=== PATIENT | female | born 1945 | race Caucasian/White ===

== ENCOUNTER 2022-09-18 09:32 | Day surgery (SDC) | payer MEDICARE, OTHER ==
[~2022-09-18] VITALS: Ht 157.5 cm; Wt 50.9 kg
[2022-09-18] MEDS ORDERED: OMEP40CA21 PO (09:54)
[2022-09-18] MEDS ORDERED: CHOL100046 PO (09:54)
[2022-09-18] MEDS ORDERED: MEMA10TA56 PO (09:54)
[2022-09-18] MEDS ORDERED: PRAV20TA4 PO (09:54)
[2022-09-18] MEDS ORDERED: DILT30TA3 PO (09:54)
[2022-09-18] MEDS ORDERED: MULT-1085 PO (09:54)
[2022-09-18] MEDS ORDERED: MIDAZolam 1 MG/ML 5ML VIAL ONE (11:05)
[2022-09-18] MEDS ORDERED: fentaNYL/PF 50MCG/1 ML 2ML syringe ONE (11:05)
[2022-09-18 12:35] VITALS: BP 108/68
[2022-09-18 12:45] VITALS: BP 117/65
[2022-09-18 12:55] VITALS: BP 118/82
[2022-09-18 13:05] VITALS: BP 109/78
[2022-09-18 13:06] VITALS: BP 138/72
== END 2022-09-18 13:10 | disposition home or self-care (01) ==
LOC: GI LAB 09:32
PROVIDERS: ATTEND Internal Medicine Gastroenterology
DX: Z08 Encounter for follow-up examination after completed treatment for malignant neoplasm (principal); K57.30 Diverticulosis of large intestine without perforation or abscess without bleeding; K64.8 Other hemorrhoids; K62.1 Rectal polyp; F03.90 Unspecified dementia, unspecified severity, without behavioral disturbance, psychotic disturbance, mood disturbance, and anxiety; Z98.0 Intestinal bypass and anastomosis status; Z85.038 Personal history of other malignant neoplasm of large intestine; Z87.891 Personal history of nicotine dependence; Z72.89 Other problems related to lifestyle; Z79.899 Other long term (current) drug therapy; Z80.0 Family history of malignant neoplasm of digestive organs
CPT/HCPCS: 45385; C1889; G0500; J2250; J3010; J7030; Z7512; 99152; A4620

== ENCOUNTER 2022-12-04 06:36 | Emergency (ER) | payer MEDICARE, OTHER ==
[~2022-12-04] VITALS: Ht 157.5 cm; Wt 54.5 kg
[~2022-12-04 06:36] MED LIST: APIX5TAB3 PO; CHOL100046 PO; LEVO750T68 PO; LISI5TAB22 PO; LOP25T PO; MEMA10TA56 PO; OMEP40CA21 PO; PRAV20TA4 PO
[2022-12-04 08:03] LABS: BASOPHILS # (AUTO) 0.1 X10'3 (0-0.2); BASOPHILS % (AUTO) 0.6 % (0-1); EOSINOPHILS # (AUTO) 0.2 X10'3 (0-0.9); EOSINOPHILS % (AUTO) 1.8 % (0-6); HEMATOCRIT 36.2 % (35.0-45.0); HEMOGLOBIN 12.1 g/dl (12.0-16.0); LYMPHOCYTES # (AUTO) 1.4 X10'3 (1.1-4.8); LYMPHOCYTES % (AUTO) 13.6 % (21-51); MEAN CORPUSCULAR HEMOGLOBIN 32.7 PG (27.0-31.0); MEAN CORPUSCULAR HGB CONC 33.3 g/dL (33.0-36.5); MEAN CORPUSCULAR VOLUME 98.1 FL (78-98); MONOCYTES # (AUTO) 0.9 X10'3 (0-0.9); MONOCYTES % (AUTO) 8.9 % (2-12); NEUTROPHILS # (AUTO) 7.6 X10'3 (1.8-7.7); NEUTROPHILS % (AUTO) 75.1 % (42-75); PLATELET COUNT 243 X10'3 (140-440); RED BLOOD COUNT 3.69 X10'6 (4.20-5.60); RED CELL DISTRIBUTION WIDTH 14.4 % (11.5-14.5); WHITE BLOOD COUNT 10.1 X10'3 (4.5-11.0)
[2022-12-04 08:12] LABS: ALANINE AMINOTRANSFERASE 25 U/L (12-78); ALBUMIN 3.4 G/DL (3.4-5.0); ALBUMIN/GLOBULIN RATIO 0.9 (1.1-1.5); ALKALINE PHOSPHATASE 99 IU/L (46-116); ANION GAP 12 (8-16); ASPARTATE AMINO TRANSFERASE 27 U/L (10-37); BILIRUBIN,TOTAL 0.8 MG/DL (0.1-1.0); BLOOD UREA NITROGEN 8 MG/DL (7-18); BUN/CREATININE RATIO 8.2 (10.0-20.0); CALCIUM 8.6 MG/DL (8.5-10.1); CHLORIDE 108 MMOL/L (99-107); CREATININE 0.98 MG/DL (0.40-0.90); LIPASE 115 U/L (73-393); POTASSIUM 3.7 MMOL/L (3.5-5.1); SODIUM 144 MMOL/L (135-145); TOTAL CARBON DIOXIDE 24.5 MMOL/L (24-32); eGFR 55 ML/MIN
[2022-12-04 08:23] LABS: GLUCOSE 118 MG/DL (70-104)
[2022-12-04] MEDS ORDERED: metoprolol tartrate 50mg tablet PO ONE (08:25)
[2022-12-04 09:27] VITALS: BP 130/97; PULSE 110; RESP 20; TEMP 97.2; O2SAT 95
[2022-12-04] MEDS ORDERED: dicyclomine 10 MG capsule PO ONE (09:55)
[2022-12-04] MEDS ORDERED: DICY10CA88 PO ×2 (09:58)
[2022-12-06] MEDS ORDERED: LISI5TAB22 PO (16:44)
[2022-12-06] MEDS ORDERED: APIX5TAB3 PO (16:44)
[2022-12-06] MEDS ORDERED: DICY10CA88 PO (16:44)
[2022-12-06] MEDS ORDERED: PRAV20TA4 PO (16:44)
[2022-12-06] MEDS ORDERED: DILT30TA3 PO (16:44)
[2022-12-06] MEDS ORDERED: METO25TA6 PO (16:44)
[2022-12-11] MEDS ORDERED: FOLI1TAB27 PO (10:18)
[2022-12-11] MEDS ORDERED: LEVO250T74 PO (10:18)
[2022-12-11] MEDS ORDERED: MULT-25 PO (10:18)
[2022-12-11] MEDS ORDERED: SACU1TAB PO (10:18)
[2022-12-11] MEDS ORDERED: thiamine tablet PO (10:18)
[2022-12-11] MEDS ORDERED: FURO-149 PO (10:29)
[2022-12-11] MEDS ORDERED: METO-395 PO (10:36)
== END 2022-12-04 10:17 | disposition home or self-care (01) ==
LOC: ER 06:36
DX: R10.9 Unspecified abdominal pain (principal); F03.90 Unspecified dementia, unspecified severity, without behavioral disturbance, psychotic disturbance, mood disturbance, and anxiety; Z88.0 Allergy status to penicillin; Z79.899 Other long term (current) drug therapy
CPT/HCPCS: 36415; 74176; 80053; 83690; 85025; 93005; 99284

== ENCOUNTER 2023-04-05 14:18 | Emergency (ER) | payer MEDICARE, OTHER ==
[~2023-04-05] VITALS: Ht 152.4 cm; Wt 49.0 kg
[~2023-04-05 14:18] MED LIST changes: +ALBU6.7H14 INH; -CHOL100046 PO; -LEVO750T68 PO; +LISI2.5T14 PO; -LISI5TAB22 PO; -LOP25T PO; +METO25TA6 PO; +SPIR25TA PO
--- NOTE | 2023-04-05 15:06 | NUR ---
SPOKE WITH . HE IS WONDERING IF PATIENT HAS A ROOM YET.
[2023-04-05 15:08] LABS: BASOPHILS % (AUTO) 0.7 % (0-1); EOSINOPHILS # (AUTO) 0.1 X10'3 (0-0.9); EOSINOPHILS % (AUTO) 0.8 % (0-6); HEMATOCRIT 30.3 % (35.0-45.0); HEMOGLOBIN 10.1 g/dl (12.0-16.0); LYMPHOCYTES % (AUTO) 26.4 % (21-51); MEAN CORPUSCULAR HEMOGLOBIN 31.5 PG (27.0-31.0); MEAN CORPUSCULAR HGB CONC 33.4 g/dL (33.0-36.5); MEAN CORPUSCULAR VOLUME 94.2 FL (78-98); MONOCYTES # (AUTO) 0.7 X10'3 (0-0.9); MONOCYTES % (AUTO) 9.6 % (2-12); NEUTROPHILS # (AUTO) 4.8 X10'3 (1.8-7.7); NEUTROPHILS % (AUTO) 62.5 % (42-75); PLATELET COUNT 274 X10'3 (140-440); RED BLOOD COUNT 3.22 X10'6 (4.20-5.60); RED CELL DISTRIBUTION WIDTH 15.3 % (11.5-14.5); WHITE BLOOD COUNT 7.7 X10'3 (4.5-11.0)
[2023-04-05 15:22] LABS: ALANINE AMINOTRANSFERASE 14 U/L (12-78); ALBUMIN 3.5 G/DL (3.4-5.0); ALKALINE PHOSPHATASE 72 IU/L (46-116); ANION GAP 7 (8-16); ASPARTATE AMINO TRANSFERASE 16 U/L (10-37); BILIRUBIN,TOTAL 0.6 MG/DL (0.1-1.0); BLOOD UREA NITROGEN 13 MG/DL (7-18); BUN/CREATININE RATIO 16.3 (10.0-20.0); CHLORIDE 104 MMOL/L (99-107); LIPASE 41 U/L (16-77); POTASSIUM 4.3 MMOL/L (3.5-5.1); SODIUM 141 MMOL/L (135-145); TOTAL CARBON DIOXIDE 30.2 MMOL/L (24-32); eCRCL 41 ML/MIN; eGFR 69 ML/MIN
[2023-04-05 15:24] LABS: GLUCOSE 98 MG/DL (70-104)
[2023-04-05 15:26] LABS: BILIRUBIN,URINE NEGATIVE (Neg); CLARITY,URINE SLIGHTLY CLOUDY (Clear); COLOR,URINE YELLOW (Yellow); GLUCOSE, URINE 500 mg/dl (Neg); KETONES,URINE TRACE mg/dl (Neg); LEUKOCYTE ESTERASE ,URINE NEGATIVE (Neg); NITRITES, URINE NEGATIVE (Neg); OCCULT BLOOD,URINE NEGATIVE (Neg); PROTEIN,URINE NEGATIVE (Neg)
[2023-04-05 15:36] LABS: UA COLLECTION TYPE OTHER
[2023-04-05 15:37] LABS: MUCUS STRANDS MODERATE /LPF (Neg); SQUAMOUS EPITHELIAL CELL,UR MANY /LPF (FEW)
[2023-04-05 15:38] LABS: BACTERIA,URINE FEW /HPF (Neg); RBC,URINE 0-2 /HPF (0-2); TRANSITIONAL EPI CELLS,URINE FEW /HPF; WBC,URINE 0-4 /HPF (0-4)
--- NOTE | 2023-04-05 16:25 | NUR ---
DR. VARNER AT BEDSIDE.
[2023-04-05] MEDS ORDERED: bisacodyl 5mg tablet.DR PO ONE (23:35)
[2023-04-05] MEDS ORDERED: BISA-79 PO (23:39)
[2023-04-06 01:48] VITALS: BP 119/82; PULSE 89; RESP 14; TEMP 97.8; O2SAT 98
== END 2023-04-06 01:47 | disposition home or self-care (01) ==
LOC: ER 14:19
DX: K59.00 Constipation, unspecified (principal); R53.1 Weakness
CPT/HCPCS: 36415; 74176; 80053; 81001; 83690; 85025; 99285; A4353

== ENCOUNTER 2023-06-26 15:17 | Emergency (ER) | payer MEDICARE, OTHER ==
[~2023-06-26] VITALS: Ht 167.6 cm; Wt 48.6 kg
[~2023-06-26 15:17] MED LIST changes: +BISA-79 PO
[2023-06-26 18:10] LABS: EOSINOPHILS % (AUTO) 0 % (0-6); MEAN CORPUSCULAR HEMOGLOBIN 25.1 PG (27.0-31.0); MEAN PLATELET VOLUME 8.4 FL (7.4-10.4); MONOCYTES # (AUTO) 0.9 X10'3 (0-0.9); MONOCYTES % (AUTO) 10.7 % (2-12); WHITE BLOOD COUNT 8.9 X10'3 (4.5-11.0)
[2023-06-26 18:13] LABS: BASOPHILS % (AUTO) 0.6 % (0-1); HEMATOCRIT 29.7 % (35.0-45.0); HEMOGLOBIN 9.4 g/dl (12.0-16.0); LYMPHOCYTES # (AUTO) 1.5 X10'3 (1.1-4.8); LYMPHOCYTES % (AUTO) 17.3 % (21-51); MEAN CORPUSCULAR HGB CONC 31.7 g/dL (33.0-36.5); MEAN CORPUSCULAR VOLUME 79.2 FL (78-98); NEUTROPHILS # (AUTO) 6.3 X10'3 (1.8-7.7); NEUTROPHILS % (AUTO) 71.4 % (42-75); PLATELET COUNT 362 X10'3 (140-440); RED BLOOD COUNT 3.75 X10'6 (4.20-5.60); RED CELL DISTRIBUTION WIDTH 18.2 % (11.5-14.5)
[2023-06-26 18:42] LABS: ALANINE AMINOTRANSFERASE 22 U/L (12-78); ALBUMIN 3.2 G/DL (3.4-5.0); ALBUMIN/GLOBULIN RATIO 0.7 (1.1-1.5); ALKALINE PHOSPHATASE 91 IU/L (46-116); ANION GAP 11 (8-16); ASPARTATE AMINO TRANSFERASE 18 U/L (10-37); BILIRUBIN,TOTAL 0.9 MG/DL (0.1-1.0); BLOOD UREA NITROGEN 24 MG/DL (7-18); BUN/CREATININE RATIO 23.3 (10.0-20.0); CHLORIDE 104 MMOL/L (99-107); CREATININE 1.03 MG/DL (0.40-0.90); LIPASE 43 U/L (16-77); POTASSIUM 4.5 MMOL/L (3.5-5.1); SODIUM 138 MMOL/L (135-145); TOTAL CARBON DIOXIDE 22.9 MMOL/L (24-32); TOTAL PROTEIN 7.8 G/DL (6.4-8.2); eCRCL 34 ML/MIN; eGFR 52 ML/MIN
[2023-06-26 18:50] LABS: GLUCOSE 136 MG/DL (70-104)
[2023-06-26 19:42] LABS: CALCIUM 9.1 MG/DL (8.5-10.1)
[2023-06-26 19:54] LABS: ACANTHOCYTES FEW; ANISOCYTOSIS 2+; BURR CELLS FEW; HYPOCHROMASIA 2+; MICROCYTOSIS 1+; PLATELET ESTIMATE NORMAL; SCHISTOCYTES FEW
[2023-06-26 23:53] VITALS: BP 121/84; PULSE 106; RESP 16; TEMP 97.8; O2SAT 95
== END 2023-06-26 23:55 | disposition home or self-care (01) ==
LOC: ER 15:18
DX: K80.20 Calculus of gallbladder without cholecystitis without obstruction (principal); K80.50 Calculus of bile duct without cholangitis or cholecystitis without obstruction; K56.609 Unspecified intestinal obstruction, unspecified as to partial versus complete obstruction; K62.4 Stenosis of anus and rectum
CPT/HCPCS: 36415; 71045; 74176; 76700; 80053; 83690; 84484; 85008; 85025; 93005; 99285

== ENCOUNTER 2023-08-08 11:30 | Emergency (ER) | payer MEDICARE, OTHER ==
[~2023-08-08] VITALS: Ht 149.9 cm; Wt 45.5 kg
[2023-08-08 11:32] VITALS: TEMP 97.2
[2023-08-08 12:15] LABS: BASOPHILS # (AUTO) 0.1 X10'3 (0-0.2); EOSINOPHILS # (AUTO) 0.1 X10'3 (0-0.9); EOSINOPHILS % (AUTO) 0.8 % (0-6); HEMATOCRIT 27.7 % (35.0-45.0); HEMOGLOBIN 8.4 g/dl (12.0-16.0); LYMPHOCYTES # (AUTO) 1.5 X10'3 (1.1-4.8); LYMPHOCYTES % (AUTO) 18.3 % (21-51); MEAN CORPUSCULAR HEMOGLOBIN 23.1 PG (27.0-31.0); MEAN CORPUSCULAR HGB CONC 30.5 g/dL (33.0-36.5); MEAN CORPUSCULAR VOLUME 75.8 FL (78-98); MEAN PLATELET VOLUME 8.4 FL (7.4-10.4); MONOCYTES % (AUTO) 12.7 % (2-12); NEUTROPHILS # (AUTO) 5.4 X10'3 (1.8-7.7); NEUTROPHILS % (AUTO) 67.2 % (42-75); PLATELET COUNT 403 X10'3 (140-440); RED BLOOD COUNT 3.65 X10'6 (4.20-5.60); RED CELL DISTRIBUTION WIDTH 22.1 % (11.5-14.5)
[2023-08-08 12:29] LABS: ALANINE AMINOTRANSFERASE 10 U/L (12-78); ALBUMIN 2.6 G/DL (3.4-5.0); ALBUMIN/GLOBULIN RATIO 0.6 (1.1-1.5); ALKALINE PHOSPHATASE 89 IU/L (46-116); ANION GAP 10 (8-16); ASPARTATE AMINO TRANSFERASE 23 U/L (10-37); BILIRUBIN,TOTAL 0.8 MG/DL (0.1-1.0); BLOOD UREA NITROGEN 17 MG/DL (7-18); BUN/CREATININE RATIO 24.6 (10.0-20.0); CALCIUM 7.9 MG/DL (8.5-10.1); CHLORIDE 104 MMOL/L (99-107); CREATININE 0.69 MG/DL (0.40-0.90); POTASSIUM 3.3 MMOL/L (3.5-5.1); SODIUM 138 MMOL/L (135-145); TOTAL CARBON DIOXIDE 24.3 MMOL/L (24-32); TOTAL PROTEIN 6.7 G/DL (6.4-8.2); eCRCL 45 ML/MIN; eGFR 82 ML/MIN
[2023-08-08 12:31] LABS: ANISOCYTOSIS 3+; MICROCYTOSIS 1+; PLATELET ESTIMATE NORMAL; SCHISTOCYTES FEW
[2023-08-08 12:33] LABS: ELLIPTOCYTES FEW
[2023-08-08 12:42] LABS: GLUCOSE 85 MG/DL (70-104)
[2023-08-08] MEDS: potassium Cl 20 mEq SR tablet PO ONE (14:25)
[2023-08-08] MEDS ORDERED: ONDA4TAB12 PO (15:21)
[2023-08-08 16:10] VITALS: BP 111/76; PULSE 96; RESP 18; O2SAT 100
== END 2023-08-08 16:10 | disposition home or self-care (01) ==
LOC: ER 11:30
DX: D64.9 Anemia, unspecified (principal); E87.6 Hypokalemia; F03.90 Unspecified dementia, unspecified severity, without behavioral disturbance, psychotic disturbance, mood disturbance, and anxiety; R62.7 Adult failure to thrive; I10 Essential (primary) hypertension; I48.91 Unspecified atrial fibrillation; Z85.038 Personal history of other malignant neoplasm of large intestine; Z88.0 Allergy status to penicillin
CPT/HCPCS: 36415; 80053; 85008; 85025; 86885; 86900; 86901; 99283

== ENCOUNTER 2023-08-27 13:17 | Emergency (ER) | payer MEDICARE, OTHER ==
[~2023-08-27] VITALS: Ht 160 cm; Wt 49.0 kg
[~2023-08-27 13:17] MED LIST changes: +ONDA4TAB12 PO
[2023-08-27 13:46] VITALS: TEMP 96.7
[2023-08-27 13:59] LABS: BASOPHILS # (AUTO) 0.1 X10'3 (0-0.2); BASOPHILS % (AUTO) 1.2 % (0-1); EOSINOPHILS % (AUTO) 0.5 % (0-6); HEMATOCRIT 32.6 % (35.0-45.0); HEMOGLOBIN 9.9 g/dl (12.0-16.0); LYMPHOCYTES % (AUTO) 35.7 % (21-51); MEAN CORPUSCULAR HEMOGLOBIN 23.4 PG (27.0-31.0); MEAN CORPUSCULAR HGB CONC 30.5 g/dL (33.0-36.5); MEAN CORPUSCULAR VOLUME 76.7 FL (78-98); MEAN PLATELET VOLUME 8.6 FL (7.4-10.4); MONOCYTES # (AUTO) 0.8 X10'3 (0-0.9); NEUTROPHILS # (AUTO) 4.6 X10'3 (1.8-7.7); NEUTROPHILS % (AUTO) 53.6 % (42-75); PLATELET COUNT 239 X10'3 (140-440); RED BLOOD COUNT 4.25 X10'6 (4.20-5.60); RED CELL DISTRIBUTION WIDTH 24.1 % (11.5-14.5); WHITE BLOOD COUNT 8.5 X10'3 (4.5-11.0)
[2023-08-27 14:24] LABS: ANISOCYTOSIS 3+; ELLIPTOCYTES FEW; MICROCYTOSIS 1+; PLATELET ESTIMATE NORMAL
[2023-08-27 14:25] LABS: ACANTHOCYTES 1+; HYPOCHROMASIA 1+; TEAR DROP CELLS FEW
[2023-08-27 14:26] LABS: LARGE PLATELETS FEW; POLYCHROMASIA FEW
[2023-08-27 14:39] LABS: ALBUMIN 2.8 G/DL (3.4-5.0); ANION GAP 7 (8-16); BLOOD UREA NITROGEN 18 MG/DL (7-18); BUN/CREATININE RATIO 25.4 (10.0-20.0); CALCIUM 8.5 MG/DL (8.5-10.1); CHLORIDE 106 MMOL/L (99-107); CREATININE 0.71 MG/DL (0.40-0.90); GLUCOSE 99 MG/DL (70-104); POTASSIUM 4.3 MMOL/L (3.5-5.1); PRO BRAIN NATRIURETIC PEPTIDE 8269 PG/ML (0-450); SODIUM 139 MMOL/L (135-145); TOTAL CARBON DIOXIDE 25.9 MMOL/L (24-32); eCRCL 50 ML/MIN; eGFR 79 ML/MIN
[2023-08-27] MEDS: normal saline 1000ML IV soln IVB ONE (14:55)
[2023-08-27 15:55] LABS: BILIRUBIN,URINE SMALL (Neg); CLARITY,URINE SLIGHTLY CLOUDY (Clear); COLOR,URINE YELLOW (Yellow); GLUCOSE, URINE 500 mg/dl (Neg); KETONES,URINE TRACE mg/dl (Neg); LEUKOCYTE ESTERASE ,URINE NEGATIVE (Neg); NITRITES, URINE NEGATIVE (Neg); OCCULT BLOOD,URINE NEGATIVE (Neg); PH,URINE 5.5 (4.8-8.0); PROTEIN,URINE TRACE mg/dl (Neg)
[2023-08-27 16:12] LABS: MUCUS STRANDS MODERATE /LPF (Neg); SQUAMOUS EPITHELIAL CELL,UR MODERATE /LPF (FEW); UA COLLECTION TYPE STRAIGHT CATH
[2023-08-27 16:15] LABS: BACTERIA,URINE FEW /HPF (Neg); RBC,URINE 0-2 /HPF (0-2); WBC,URINE 0-4 /HPF (0-4)
[2023-08-27 16:16] LABS: TRANSITIONAL EPI CELLS,URINE FEW /HPF
[2023-08-27 17:21] VITALS: BP 11/81; PULSE 92; RESP 16; O2SAT 92
== END 2023-08-27 17:24 | disposition home or self-care (01) ==
LOC: ER 13:18
DX: E86.0 Dehydration (principal); E87.6 Hypokalemia; F03.90 Unspecified dementia, unspecified severity, without behavioral disturbance, psychotic disturbance, mood disturbance, and anxiety; I48.91 Unspecified atrial fibrillation; I10 Essential (primary) hypertension; Z85.038 Personal history of other malignant neoplasm of large intestine; Z88.0 Allergy status to penicillin
CPT/HCPCS: 36415; 71045; 80048; 81001; 82948; 83880; 84145; 84484; 85008; 85025; 93005; 96360; 99285; J7030; A4615; A6212; A6213; A6250; C1758

== ENCOUNTER 2023-09-02 17:29 | Inpatient (IN) | payer MEDICARE, OTHER ==
[~2023-09-02] VITALS: Ht 154.9 cm; Wt 45.1 kg
[~2023-09-02 17:29] MED LIST changes: +MEMA10TA22 PO; -MEMA10TA56 PO
[2023-09-02] MEDS: normal saline 1000ML IV soln IVB ONE (18:15)
[2023-09-02 18:16] LABS: BASOPHILS # (AUTO) 0.1 X10'3 (0-0.2); EOSINOPHILS % (AUTO) 0.2 % (0-6); LYMPHOCYTES # (AUTO) 3.6 X10'3 (1.1-4.8); LYMPHOCYTES % (AUTO) 33.2 % (21-51); MEAN PLATELET VOLUME 9.4 FL (7.4-10.4); MONOCYTES # (AUTO) 0.7 X10'3 (0-0.9); MONOCYTES % (AUTO) 6.6 % (2-12); NEUTROPHILS # (AUTO) 6.3 X10'3 (1.8-7.7); PLATELET COUNT 277 X10'3 (140-440); WHITE BLOOD COUNT 10.7 X10'3 (4.5-11.0)
[2023-09-02 18:48] LABS: ALBUMIN 3.1 G/DL (3.4-5.0); ANION GAP 20 (8-16); BLOOD UREA NITROGEN 30 MG/DL (7-18); BUN/CREATININE RATIO 25.6 (10.0-20.0); CALCIUM 8.6 MG/DL (8.5-10.1); CHLORIDE 106 MMOL/L (99-107); CREATININE 1.17 MG/DL (0.40-0.90); POTASSIUM 4.2 MMOL/L (3.5-5.1); PRO BRAIN NATRIURETIC PEPTIDE 17221 PG/ML (0-450); SODIUM 144 MMOL/L (135-145); TOTAL CARBON DIOXIDE 18.1 MMOL/L (24-32); eCRCL 29 ML/MIN; eGFR 45 ML/MIN
[2023-09-02 18:51] LABS: GLUCOSE 186 MG/DL (70-104)
[2023-09-02] MEDS: ipratropium/albuterol 3ml nebule NEB ONE (18:51)
[2023-09-02 18:55] VITALS: PULSE 105; RESP 18; O2SAT 100
[2023-09-02 19:06] LABS: ABG BASE EXCESS -10.8 mmol/L (-2.0-2.0); ABG HCO3 14.7 mmol/L (22.0-26.0); ABG PCO2 (T) 31.2 mmHg (32.0-45.0); ABG PO2 (T) 326.5 mmHg (75.0-100.0); FCOHb 0.3 % (0.0-3.9); FMetHb 0.4 % (0.0-1.5); FO2Hb 99.3 % (94-97); MODE MASK - NRB; PATIENT TEMPERATURE 36.7; TOTAL HEMOGLOBIN 10.4 G/dl (12.0-16.0)
[2023-09-02 19:16] VITALS: PULSE 101; RESP 16; O2SAT 100
[2023-09-02 19:16] LABS: HEMATOCRIT 31.6 % (35.0-45.0); HEMOGLOBIN 10.4 g/dl (12.0-16.0); MEAN CORPUSCULAR HEMOGLOBIN 24.5 PG (27.0-31.0); MEAN CORPUSCULAR HGB CONC 33.1 g/dL (33.0-36.5); RED BLOOD COUNT 4.27 X10'6 (4.20-5.60); RED CELL DISTRIBUTION WIDTH 22.8 % (11.5-14.5)
[2023-09-02 19:46] LABS: ALANINE AMINOTRANSFERASE 8 U/L (12-78); ALKALINE PHOSPHATASE 90 IU/L (46-116); ANION GAP 17 (8-16); BLOOD UREA NITROGEN 29 MG/DL (7-18); BUN/CREATININE RATIO 23.8 (10.0-20.0); CALCIUM 8.5 MG/DL (8.5-10.1); CHLORIDE 107 MMOL/L (99-107); CREATININE 1.22 MG/DL (0.40-0.90); POTASSIUM 4.4 MMOL/L (3.5-5.1); SODIUM 143 MMOL/L (135-145); TOTAL CARBON DIOXIDE 18.7 MMOL/L (24-32); eCRCL 28 ML/MIN; eGFR 43 ML/MIN
[2023-09-02 19:50] LABS: LIPASE 49 U/L (16-77)
[2023-09-02 19:53] LABS: ALBUMIN/GLOBULIN RATIO 0.8 (1.1-1.5); ASPARTATE AMINO TRANSFERASE 22 U/L (10-37); BILIRUBIN,TOTAL 1.2 MG/DL (0.1-1.0); GLUCOSE 156 MG/DL (70-104)
[2023-09-02] MEDS: levoFLOXACIN-Levaquin 750MG/D5 150 ML IV ONE (20:13)
[2023-09-02] MEDS: furosemide 10 MG/1 ML 10ml inj IV ONE (20:18)
[2023-09-02] MEDS ORDERED: potassium Cl 20 mEq SR tablet PO PRN ×2 (23:05)
[2023-09-02] MEDS ORDERED: magnesium Cl slow-release 64mg tablet PO PRN (23:05)
[2023-09-02] MEDS ORDERED: potassium Cl 40MEQ/1/2NS 520ml 520 ML IV PRN (23:05)
[2023-09-02] MEDS ORDERED: magnesium 4gm in 100ml NS 100 ML IV PRN (23:05)
[2023-09-02] MEDS ORDERED: magnesium 2GM in 50ml NS 50 ML IV PRN (23:05)
[2023-09-02] MEDS ORDERED: PERFLUTREN PROTEIN-A MICROSPHR (Optison) 0.22 MG/ML 3ML VIAL IV PRN (23:10)
[2023-09-02 23:27] LABS: BILIRUBIN,URINE NEGATIVE (Neg); CLARITY,URINE CLOUDY (Clear); COLOR,URINE AMBER (Yellow); GLUCOSE, URINE >=1000 mg/dl (Neg); KETONES,URINE NEGATIVE (Neg); LEUKOCYTE ESTERASE ,URINE SMALL (Neg); NITRITES, URINE POSITIVE (Neg); OCCULT BLOOD,URINE LARGE (Neg); PH,URINE 5.5 (4.8-8.0); PROTEIN,URINE 30 mg/dl (Neg); UA COLLECTION TYPE FOLEY CATH
[2023-09-02 23:43] LABS: SQUAMOUS EPITHELIAL CELL,UR FEW /LPF (FEW)
[2023-09-02 23:45] LABS: RBC,URINE 0-2 /HPF (0-2)
[2023-09-02 23:46] LABS: BACTERIA,URINE 1+ /HPF (Neg); YEAST MANY /HPF (NEGATIVE)
[2023-09-03] VITALS (8 sets, daily range): BP systolic 90–106; BP diastolic 50–69; PULSE 82–102; RESP 10–22; TEMP 97–98.3; O2SAT 90–100
[2023-09-03] MEDS: digoxin 250mcg/ml 2ml ampule IV ONE (04:50)
[2023-09-03 06:43] LABS: BASOPHILS % (AUTO) 0.3 % (0-1); EOSINOPHILS % (AUTO) 0.1 % (0-6); HEMATOCRIT 24.4 % (35.0-45.0); HEMOGLOBIN 7.5 g/dl (12.0-16.0); LYMPHOCYTES # (AUTO) 1.6 X10'3 (1.1-4.8); LYMPHOCYTES % (AUTO) 21.1 % (21-51); MEAN CORPUSCULAR HEMOGLOBIN 23.1 PG (27.0-31.0); MEAN CORPUSCULAR HGB CONC 30.5 g/dL (33.0-36.5); MEAN CORPUSCULAR VOLUME 75.6 FL (78-98); MONOCYTES # (AUTO) 0.7 X10'3 (0-0.9); MONOCYTES % (AUTO) 8.8 % (2-12); NEUTROPHILS # (AUTO) 5.2 X10'3 (1.8-7.7); NEUTROPHILS % (AUTO) 69.7 % (42-75); PLATELET COUNT 205 X10'3 (140-440); RED BLOOD COUNT 3.23 X10'6 (4.20-5.60); RED CELL DISTRIBUTION WIDTH 23.2 % (11.5-14.5); WHITE BLOOD COUNT 7.4 X10'3 (4.5-11.0)
[2023-09-03 06:49] LABS: ALBUMIN 2.5 G/DL (3.4-5.0); ANION GAP 12 (8-16); BLOOD UREA NITROGEN 25 MG/DL (7-18); BUN/CREATININE RATIO 32.5 (10.0-20.0); CALCIUM 8.1 MG/DL (8.5-10.1); CHLORIDE 109 MMOL/L (99-107); CREATININE 0.77 MG/DL (0.40-0.90); MAGNESIUM 1.8 MG/DL (1.5-2.4); POTASSIUM 3.4 MMOL/L (3.5-5.1); SODIUM 145 MMOL/L (135-145); TOTAL CARBON DIOXIDE 24.4 MMOL/L (24-32); eCRCL 45 ML/MIN; eGFR 72 ML/MIN
[2023-09-03 06:53] LABS: GLUCOSE 91 MG/DL (70-104)
[2023-09-03] MEDS ORDERED: metoprolol tartrate 25mg tablet PO SCH (08:00)
[2023-09-03] MEDS: furosemide 40mg/4ml inj IV SCH (08:00)
[2023-09-03] MEDS: apixaban 5mg tablet PO SCH (08:00)
[2023-09-03] MEDS: memantine 5mg tablet PO SCH (08:00)
[2023-09-03] MEDS ORDERED: K and/or MAG REPLACEMENT MC SCH (08:00)
[2023-09-03 09:30] LABS: DIGOXIN 1.8 NG/ML (0.9-1.9)
[2023-09-03] MEDS ORDERED: morphine 2 MG/ML inj. syringe IV PRN ×2 (10:45)
[2023-09-03] MEDS ORDERED: LORazepam 0.5 MG tablet PO PRN (10:45)
[2023-09-03] MEDS ORDERED: hyoscyamine 0.125mg TAB.SUBL SL PRN (10:45)
[2023-09-03] MEDS ORDERED: morphine 4 MG/ML inj SYRINge IV PRN (10:45)
[2023-09-03] MEDS: normal saline 500ml IV soln 500 ML IV ONE (11:53)
[2023-09-03] MEDS: LORazepam 2 mg/ml vial IV PRN (21:04)
[2023-09-04] MEDS: morphine 10mg/0.5ml (conc. morphine) oral syringe PO PRN (02:38)
[2023-09-04 08:00] VITALS: RESP 10; O2SAT 95
[2023-09-04 13:34] VITALS: RESP 11
[2023-09-04] MEDS ORDERED: levoFLOXACIN-Levaquin 750MG/D5 150 ML IV SCH (20:00)
== END 2023-09-04 14:15 | disposition hospice, home (50) | DRG 871 ==
LOC: ER 17:29 → ED HOLD 23:07 → EDBEDREQ 09-03 00:26 → PCU 3S 09-03 01:23 → SUR 3N 09-03 16:30
PROVIDERS: ADMIT Internal Medicine Critical Care Medicine; ATTEND Family Medicine
DX: A41.9 Sepsis, unspecified organism (principal); I21.A1 Myocardial infarction type 2; I50.33 Acute on chronic diastolic (congestive) heart failure; J69.0 Pneumonitis due to inhalation of food and vomit; J96.00 Acute respiratory failure, unspecified whether with hypoxia or hypercapnia; N39.0 Urinary tract infection, site not specified; Z68.1 Body mass index [BMI] 19.9 or less, adult; Z20.822 Contact with and (suspected) exposure to COVID-19; F03.90 Unspecified dementia, unspecified severity, without behavioral disturbance, psychotic disturbance, mood disturbance, and anxiety; R62.7 Adult failure to thrive; D50.9 Iron deficiency anemia, unspecified; I11.0 Hypertensive heart disease with heart failure; E87.6 Hypokalemia; I48.91 Unspecified atrial fibrillation; Z66 Do not resuscitate; Z88.0 Allergy status to penicillin; Z79.01 Long term (current) use of anticoagulants; Z79.899 Other long term (current) drug therapy; Z85.038 Personal history of other malignant neoplasm of large intestine; Z51.5 Encounter for palliative care; Z90.49 Acquired absence of other specified parts of digestive tract
CPT/HCPCS: 36415; 36600; 70450; 71045; 71250; 74176; 80048; 80053; 80162; 81001; 82803; 83605; 83690; 83735; 83880; 84100; 84484; 85018; 85025; 87040; 87081; 87088; 87811; 92508; 92616; 93005; 94640; 94760; 99285; A4314; A4615; A5200; C1758; G0378; J1160; J1940; J1956; J2060; J7030; J7040